=== PATIENT | female | born 1970 | race Two or more races ===

== ENCOUNTER 2022-05-03 03:01 | Emergency (ER) | payer OTHER ==
[~2022-05-03] VITALS: Ht 152.4 cm; Wt 56.8 kg
[2022-05-03] MEDS ORDERED: ACET-2744 PO (03:10)
[2022-05-03] MEDS ORDERED: NIFE-79 PO (03:10)
[2022-05-03 03:13] VITALS: BP 168/95
[2022-05-03 03:19] LABS: COVID AG,FIA SOURCE NASAL SWAB
[2022-05-03 03:50] LABS: INFLUENZA TYPE A NEGATIVE FOR TYPE A (NEGATIVE); INFLUENZA TYPE B NEGATIVE FOR TYPE B (NEGATIVE)
[2022-05-03] MEDS ORDERED: AMOXICILLIN TRIHYDRATE 250 MG CAPSULE PO ONE (04:45)
[2022-05-03] MEDS ORDERED: AMOX500C2 PO (04:48)
== END 2022-05-03 07:21 | disposition home or self-care (01) ==
LOC: EMS 03:02
DX: H66.92 Otitis media, unspecified, left ear (principal); J06.9 Acute upper respiratory infection, unspecified; E11.9 Type 2 diabetes mellitus without complications; I10 Essential (primary) hypertension; Z20.822 Contact with and (suspected) exposure to COVID-19
CPT/HCPCS: 87804; 99283